=== PATIENT | female | born 1940 | race Caucasian/White ===

== ENCOUNTER 2023-02-21 10:10 | Emergency (ER) | payer MEDICAID ==
[~2023-02-21] VITALS: Ht 152.4 cm; Wt 63.0 kg
[2023-02-21 10:21] VITALS: BP 154/59; PULSE 81; RESP 18; TEMP 98.3; O2SAT 98
[2023-02-21] MEDS ORDERED: IBUPROFEN 600MG TABLET PO ONE (11:15)
== END 2023-02-21 14:13 | disposition left against medical advice (07) ==
LOC: ER 10:38
DX: Z53.21 Procedure and treatment not carried out due to patient leaving prior to being seen by health care provider (principal)
CPT/HCPCS: 99281